=== PATIENT | male | born 1980 | race African-American/Black ===

== ENCOUNTER 2020-11-30 04:23 | Inpatient (IN) | payer OTHER ==
[~2020-11-30] VITALS: Ht 180.3 cm; Wt 126.3 kg
[2020-11-30] MEDS ORDERED: normal saline 1000ML IV soln IVB ONE (04:30)
[2020-11-30] MEDS ORDERED: iohexol 350MG/ML 100ml bottle IV ONE (04:42)
[2020-11-30 04:56] LABS: ABG BASE EXCESS -5.9 mmol/L (-2.0-2.0); ABG OXYGEN SATURATION 98.6 % (94-97); ABG PCO2 (T) 23.4 mmHg (32.0-45.0); ABG PO2 (T) 140.4 mmHg (75.0-100.0); ALLEN'S TEST Modified; FCOHb 0.2 % (0.0-3.9); FLOW 15 L/min; FO2Hb 98.4 % (94-97); PATIENT TEMPERATURE 36.6; TOTAL HEMOGLOBIN 15.1 G/dl (12.0-16.0)
[2020-11-30] MEDS ORDERED: heparin 10,000 units/1 ML INJ IV ONE ×2 (05:10)
[2020-11-30] MEDS ORDERED: normal saline 1000ml 1,000 ML IV ONE (05:15)
[2020-11-30 05:18] LABS: ALANINE AMINOTRANSFERASE 130 U/L (12-78); ALBUMIN 3.2 G/DL (3.4-5.0); ALBUMIN/GLOBULIN RATIO 0.8 (1.1-1.5); ALKALINE PHOSPHATASE 95 IU/L (46-116); ANION GAP 16 (8-16); ASPARTATE AMINO TRANSFERASE 73 U/L (10-37); BLOOD UREA NITROGEN 24 MG/DL (7-18); BUN/CREATININE RATIO 12.3 (6.6-38.0); CALCIUM 8.4 MG/DL (8.5-10.1); CHLORIDE 107 MMOL/L (99-107); CREATININE 1.95 MG/DL (0.40-0.90); GLUCOSE 175 MG/DL (70-104); POTASSIUM 3.7 MMOL/L (3.5-5.1); SODIUM 143 MMOL/L (135-145); TOTAL CARBON DIOXIDE 20.3 MMOL/L (24-32); TOTAL PROTEIN 7.1 G/DL (6.4-8.2); eGFR 28 ML/MIN
[2020-11-30] MEDS: heparin 25,000 UNIT/250ml bag 250 ML IV SCH ×2 (05:29→19:19)
[2020-11-30 05:31] LABS: EOSINOPHILS # (AUTO) 0.1 X10'3 (0-0.9); EOSINOPHILS % (AUTO) 1.1 % (0-6); LYMPHOCYTES # (AUTO) 1.7 X10'3 (1.1-4.8); MEAN CORPUSCULAR VOLUME 90.1 FL (78-98); NEUTROPHILS # (AUTO) 4.1 X10'3 (1.8-7.7); PLATELET COUNT 174 X10'3 (140-440); WHITE BLOOD COUNT 6.4 X10'3 (4.5-11.0)
[2020-11-30 05:33] LABS: BASOPHILS % (AUTO) 0.6 % (0-1); HEMATOCRIT 44.8 % (35.0-45.0); HEMOGLOBIN 14.7 g/dl (12.0-16.0); LYMPHOCYTES % (AUTO) 27.4 % (21-51); MEAN CORPUSCULAR HEMOGLOBIN 29.7 PG (27.0-31.0); MEAN CORPUSCULAR HGB CONC 32.9 g/dL (33.0-36.5); MEAN PLATELET VOLUME 8.7 FL (7.4-10.4); MONOCYTES # (AUTO) 0.4 X10'3 (0-0.9); MONOCYTES % (AUTO) 6.9 % (2-12); RED BLOOD COUNT 4.97 X10'6 (4.20-5.60); RED CELL DISTRIBUTION WIDTH 14.1 % (11.5-14.5)
[2020-11-30 05:36] LABS: D-DIMER 22.57 MG/L FEU (0-0.50)
[2020-11-30 06:29] LABS: NUCLEATED RED BLOOD CELLS 1 /100WBC (0-0); TOTAL CELLS COUNTED 100
[2020-11-30 06:30] LABS: LARGE PLATELETS MODERATE; PLATELET ESTIMATE NORMAL
--- NOTE | 2020-11-30 06:35 | NUR ---
HR 199 SVT on panel monitor, DR echevarria at bedside, verbal orders to push adenosine 6mg received, patient asymptomatic, automotive technician instructor at bedside.
--- NOTE | 2020-11-30 06:48 | NUR ---
Patient HR 122, ST at this time, Dr Copeland at bedside to assess patient, biomedical technician at bedside.
--- NOTE | 2020-11-30 07:30 | NUR ---
US TECH AT BEDSIDE.
[2020-11-30] MEDS ORDERED: adenosine 3mg/ml 2ml vial IV ONE ×2 (08:00→23:15)
[2020-11-30] MEDS ORDERED: sod chloride 0.9% 10ml flush syringe IV ONE (08:00)
[2020-11-30] MEDS ORDERED: magnesium 2GM in 50ml NS 50 ML IV PRN (09:00)
[2020-11-30] MEDS ORDERED: potassium Cl 40MEQ/1/2NS 520ml 520 ML IV PRN ×2 (09:00)
[2020-11-30] MEDS ORDERED: magnesium 4gm in 100ml NS 100 ML IV PRN (09:00)
[2020-11-30] MEDS ORDERED: morphine 2 MG/ML inj. syringe IV PRN (09:00)
[2020-11-30] MEDS ORDERED: magnesium Cl slow-release 64mg tablet PO PRN (09:00)
[2020-11-30] MEDS ORDERED: potassium Cl 20 mEq SR tablet PO PRN ×2 (09:00)
[2020-11-30] MEDS ORDERED: ondansetron/PF 4mg/2ml inj IV PRN (09:00)
[2020-11-30] MEDS ORDERED: acetaminophen 325mg tablet PO PRN (09:00)
[2020-11-30] MEDS: normal saline 1000ml 1,000 ML IV SCH ×2 (09:28→19:19)
[2020-11-30] MEDS ORDERED: NO HOME MEDS (12:33)
[2020-11-30] MEDS: K and/or MAG REPLACEMENT MC SCH (20:00)
[2020-11-30 20:20] VITALS: BP 141/102
[2020-11-30 22:00] VITALS: BP 133/86
[2020-11-30] MEDS ORDERED: nitroGLYCERIN 0.4mg SUBLingual tab SL PRN (22:05)
--- NOTE | 2020-11-30 23:10 | NUR ---
PAGER ID: [phone] MESSAGE: [phone] Harsh Causey: SVT 190s, vagal not successful. Need meds. Adenosine, Cardizem, amio?? Sonia MONTE [id number]
--- NOTE | 2020-11-30 23:31 | NUR ---
Page Sent promotional table spacer PAGER ID: [phone] MESSAGE: RE: Harsh Dubose RM [id number]: Adenosine pushed. 12-lead EKG shows sinus tach 115. ICU recommends amio drip. Please advise. Olivia [phone]
[2020-12-01] VITALS (10 sets, daily range): BP systolic 127–155; BP diastolic 75–105
[2020-12-01] MEDS: amiodarone/D5 360MG/200ML BAG 200 ML IV SCH ×4 (01:01→23:51)
[2020-12-01] MEDS: heparin 10,000 units/1 ML INJ IV PRN ×2 (01:39→13:22)
[2020-12-01] MEDS: normal saline 1000ml 1,000 ML IV SCH ×2 (05:01→15:00)
[2020-12-01 07:04] LABS: BASOPHILS % (AUTO) 0.9 % (0-1); EOSINOPHILS # (AUTO) 0.1 X10'3 (0-0.9); EOSINOPHILS % (AUTO) 1.7 % (0-6); HEMATOCRIT 42.1 % (42.0-52.0); HEMOGLOBIN 13.9 g/dl (14.0-17.9); LYMPHOCYTES # (AUTO) 1.3 X10'3 (1.1-4.8); LYMPHOCYTES % (AUTO) 26.8 % (21-51); MEAN CORPUSCULAR HEMOGLOBIN 29.6 PG (27.0-31.0); MEAN CORPUSCULAR VOLUME 89.5 FL (78-98); MEAN PLATELET VOLUME 9.1 FL (7.4-10.4); MONOCYTES # (AUTO) 0.4 X10'3 (0-0.9); MONOCYTES % (AUTO) 8.9 % (2-12); NEUTROPHILS % (AUTO) 61.7 % (42-75); PLATELET COUNT 171 X10'3 (140-440); RED CELL DISTRIBUTION WIDTH 14.2 % (11.5-14.5); WHITE BLOOD COUNT 4.8 X10'3 (4.5-11.0)
[2020-12-01 07:07] LABS: ANION GAP -1 (8-16); BLOOD UREA NITROGEN 22 MG/DL (7-18); BUN/CREATININE RATIO 17.6 (5.4-32.0); CALCIUM 8.7 MG/DL (8.5-10.1); CHLORIDE 103 MMOL/L (99-107); CREATININE 1.25 MG/DL (0.60-1.10); GLUCOSE 109 MG/DL (70-104); MAGNESIUM 2.2 MG/DL (1.5-2.4); POTASSIUM 4.1 MMOL/L (3.5-5.1); SODIUM 125 MMOL/L (135-145); TOTAL CARBON DIOXIDE 22.5 MMOL/L (24-32); eGFR 77 ML/MIN
[2020-12-01] MEDS: K and/or MAG REPLACEMENT MC SCH ×2 (08:00→19:48)
[2020-12-01] MEDS: heparin 25,000 UNIT/250ml bag 250 ML IV SCH ×3 (09:53→22:55)
[2020-12-01 09:56] LABS: ALBUMIN 2.9 G/DL (3.4-5.0); ANION GAP 11 (8-16); BLOOD UREA NITROGEN 22 MG/DL (7-18); CALCIUM 8.6 MG/DL (8.5-10.1); CHLORIDE 107 MMOL/L (99-107); CREATININE 1.22 MG/DL (0.60-1.10); GLUCOSE 124 MG/DL (70-104); POTASSIUM 4.3 MMOL/L (3.5-5.1); SODIUM 142 MMOL/L (135-145); eGFR 79 ML/MIN
[2020-12-01] MEDS ORDERED: ondansetron 4mg rapidly disintigrating tab PO PRN (14:40)
--- NOTE | 2020-12-01 20:49 | NUR ---
Report received from MELL Pretty. PTT result 130 heparin drip at 2300U/Hr stopped at 2045 to restart at 2245 at 2000U/Hr and next PTT on 12/02/20 at 0100
[2020-12-02 02:00] VITALS: BP 139/97
[2020-12-02 02:14] LABS: EOSINOPHILS # (AUTO) 0.1 X10'3 (0-0.9); EOSINOPHILS % (AUTO) 2.8 % (0-6); HEMATOCRIT 39.6 % (42.0-52.0); HEMOGLOBIN 13.4 g/dl (14.0-17.9); LYMPHOCYTES # (AUTO) 1.3 X10'3 (1.1-4.8); LYMPHOCYTES % (AUTO) 31.8 % (21-51); MEAN CORPUSCULAR HEMOGLOBIN 29.8 PG (27.0-31.0); MEAN CORPUSCULAR HGB CONC 33.8 g/dL (33.0-36.5); MEAN CORPUSCULAR VOLUME 88.3 FL (78-98); MEAN PLATELET VOLUME 8.6 FL (7.4-10.4); MONOCYTES # (AUTO) 0.4 X10'3 (0-0.9); MONOCYTES % (AUTO) 8.8 % (2-12); NEUTROPHILS # (AUTO) 2.2 X10'3 (1.8-7.7); NEUTROPHILS % (AUTO) 55.6 % (42-75); PLATELET COUNT 175 X10'3 (140-440); RED BLOOD COUNT 4.49 X10'6 (4.70-6.10); RED CELL DISTRIBUTION WIDTH 13.9 % (11.5-14.5)
[2020-12-02 02:25] LABS: ALBUMIN 2.9 G/DL (3.4-5.0); ANION GAP 6 (8-16); BLOOD UREA NITROGEN 20 MG/DL (7-18); BUN/CREATININE RATIO 14.5 (5.4-32.0); CALCIUM 8.6 MG/DL (8.5-10.1); CHLORIDE 108 MMOL/L (99-107); CREATININE 1.38 MG/DL (0.60-1.10); GLUCOSE 92 MG/DL (70-104); MAGNESIUM 1.9 MG/DL (1.5-2.4); POTASSIUM 4.4 MMOL/L (3.5-5.1); SODIUM 138 MMOL/L (135-145); TOTAL CARBON DIOXIDE 23.9 MMOL/L (24-32); eGFR 69 ML/MIN
[2020-12-02] MEDS: heparin 10,000 units/1 ML INJ IV PRN (05:25)
[2020-12-02] MEDS: normal saline 1000ml 1,000 ML IV SCH ×3 (05:35→21:49)
[2020-12-02] MEDS: amiodarone/D5 360MG/200ML BAG 200 ML IV SCH ×3 (05:55→23:28)
[2020-12-02 06:00] VITALS: BP 147/95
--- NOTE | 2020-12-02 06:00 | NUR ---
Patient in room PCU 3020. I have received report from Yeyo MONTE and had the opportunity to ask questions and assume patient care.
[2020-12-02 06:32] LABS: LARGE PLATELETS FEW; PLATELET ESTIMATE NORMAL
--- NOTE | 2020-12-02 06:35 | NUR ---
Lab result received PTT 36. Heparin drip 25,000units per 250 ml bag adjusted at 0525 per to 2200units/Hr and 4,000units bolus administered via EJ line, PTT to drawn at 1125.
[2020-12-02] MEDS: K and/or MAG REPLACEMENT MC SCH ×2 (07:14→20:00)
[2020-12-02 11:00] VITALS: BP 144/98
--- NOTE | 2020-12-02 13:36 | NUR ---
PAGER ID: [phone] MESSAGE: Harsh Sutton room 3020's BP is 157/101 with HR 95 amio is running at 10ml/hr. Would you like to leave it the same or make an adjustment. Please advise Megan ext [phone]
[2020-12-02 15:00] VITALS: BP 168/99
[2020-12-02] MEDS: heparin 25,000 UNIT/250ml bag 250 ML IV SCH (16:37)
[2020-12-02 18:00] VITALS: BP 149/96
--- NOTE | 2020-12-02 18:53 | NUR ---
Problems reprioritized. Patient report given, questions answered & plan of care reviewed with LAURA RN.
[2020-12-02] MEDS ORDERED: apixaban 5mg tablet PO SCH (20:00)
[2020-12-02] MEDS: metoprolol tartrate 12.5mg (1/2 tablet) PO SCH (21:08)
[2020-12-02] MEDS: apixaban 5mg tablet PO SCH (21:09)
[2020-12-02 22:00] VITALS: BP 152/90
[2020-12-03 02:00] VITALS: BP 135/86
[2020-12-03 04:54] LABS: EOSINOPHILS # (AUTO) 0.1 X10'3 (0-0.9); MEAN CORPUSCULAR HEMOGLOBIN 29.7 PG (27.0-31.0); MONOCYTES # (AUTO) 0.4 X10'3 (0-0.9); NEUTROPHILS # (AUTO) 2.3 X10'3 (1.8-7.7); WHITE BLOOD COUNT 3.8 X10'3 (4.5-11.0)
[2020-12-03 04:56] LABS: BASOPHILS % (AUTO) 0.9 % (0-1); HEMATOCRIT 40.2 % (42.0-52.0); HEMOGLOBIN 13.3 g/dl (14.0-17.9); MEAN CORPUSCULAR HGB CONC 33.2 g/dL (33.0-36.5); MEAN CORPUSCULAR VOLUME 89.5 FL (78-98); MEAN PLATELET VOLUME 8.9 FL (7.4-10.4); MONOCYTES % (AUTO) 9.3 % (2-12); NEUTROPHILS % (AUTO) 60.8 % (42-75); PLATELET COUNT 175 X10'3 (140-440); RED BLOOD COUNT 4.49 X10'6 (4.70-6.10); RED CELL DISTRIBUTION WIDTH 13.9 % (11.5-14.5)
[2020-12-03 05:04] LABS: ALBUMIN 2.8 G/DL (3.4-5.0); ANION GAP 11 (8-16); BLOOD UREA NITROGEN 17 MG/DL (7-18); BUN/CREATININE RATIO 12.3 (5.4-32.0); CALCIUM 8.5 MG/DL (8.5-10.1); CHLORIDE 108 MMOL/L (99-107); CREATININE 1.38 MG/DL (0.60-1.10); GLUCOSE 90 MG/DL (70-104); MAGNESIUM 1.9 MG/DL (1.5-2.4); POTASSIUM 4.1 MMOL/L (3.5-5.1); SODIUM 143 MMOL/L (135-145); TOTAL CARBON DIOXIDE 24.3 MMOL/L (24-32); eGFR 69 ML/MIN
[2020-12-03 06:00] VITALS: BP 134/88
--- NOTE | 2020-12-03 06:16 | NUR ---
Patient in room PCU 3020. I have received report from and had the opportunity to ask questions and assume patient care. Addendum: 12/03/20 at 0616 by Megan Mccollum RN LAURA MONTE
[2020-12-03] MEDS: K and/or MAG REPLACEMENT MC SCH ×2 (06:44→19:43)
[2020-12-03] MEDS: normal saline 1000ml 1,000 ML IV SCH ×2 (07:00→17:20)
[2020-12-03] MEDS: apixaban 5mg tablet PO SCH ×2 (07:00→19:51)
[2020-12-03] MEDS: metoprolol tartrate 12.5mg (1/2 tablet) PO SCH (07:02)
[2020-12-03] MEDS: amiodarone/D5 360MG/200ML BAG 200 ML IV SCH (07:07)
--- NOTE | 2020-12-03 09:42 | NUR ---
I agree with Preceptee, Lotus MONTE's physical assessment.
[2020-12-03] MEDS ORDERED: amiodarone/D5 360MG/200ML BAG 200 ML IV SCH (09:55)
[2020-12-03 11:00] VITALS: BP 150/83
[2020-12-03 15:00] VITALS: BP 141/86
[2020-12-03 18:00] VITALS: BP 138/87
--- NOTE | 2020-12-03 18:16 | NUR ---
Problems reprioritized. Patient report given, questions answered & plan of care reviewed with MELL Oquendo .
[2020-12-03] MEDS: metoprolol tartrate 25mg tablet PO SCH (19:51)
[2020-12-03 22:00] VITALS: BP 139/92
[2020-12-04 02:00] VITALS: BP 137/99
[2020-12-04 06:00] VITALS: BP 137/99
[2020-12-04 06:51] LABS: ALBUMIN 2.7 G/DL (3.4-5.0); ANION GAP 10 (8-16); BLOOD UREA NITROGEN 14 MG/DL (7-18); BUN/CREATININE RATIO 10.9 (5.4-32.0); CALCIUM 8.6 MG/DL (8.5-10.1); CHLORIDE 108 MMOL/L (99-107); CREATININE 1.29 MG/DL (0.60-1.10); GLUCOSE 89 MG/DL (70-104); MAGNESIUM 2.1 MG/DL (1.5-2.4); POTASSIUM 4.1 MMOL/L (3.5-5.1); SODIUM 140 MMOL/L (135-145); eGFR 74 ML/MIN
[2020-12-04 07:01] LABS: EOSINOPHILS # (AUTO) 0.1 X10'3 (0-0.9); EOSINOPHILS % (AUTO) 3.1 % (0-6); HEMOGLOBIN 13.5 g/dl (14.0-17.9); LYMPHOCYTES # (AUTO) 0.9 X10'3 (1.1-4.8); MEAN PLATELET VOLUME 9.1 FL (7.4-10.4); MONOCYTES # (AUTO) 0.4 X10'3 (0-0.9); NEUTROPHILS # (AUTO) 2.4 X10'3 (1.8-7.7); RED CELL DISTRIBUTION WIDTH 13.9 % (11.5-14.5); WHITE BLOOD COUNT 3.8 X10'3 (4.5-11.0)
[2020-12-04 07:04] LABS: BASOPHILS % (AUTO) 0.6 % (0-1); HEMATOCRIT 41.1 % (42.0-52.0); LYMPHOCYTES % (AUTO) 22.7 % (21-51); MEAN CORPUSCULAR HEMOGLOBIN 29.3 PG (27.0-31.0); MEAN CORPUSCULAR HGB CONC 32.8 g/dL (33.0-36.5); MEAN CORPUSCULAR VOLUME 89.3 FL (78-98); MONOCYTES % (AUTO) 10.6 % (2-12); PLATELET COUNT 179 X10'3 (140-440)
[2020-12-04 07:42] VITALS: BP_SYST 148
[2020-12-04] MEDS: apixaban 5mg tablet PO SCH (07:42)
[2020-12-04] MEDS: metoprolol tartrate 25mg tablet PO SCH (07:42)
[2020-12-04] MEDS: K and/or MAG REPLACEMENT MC SCH (08:00)
[2020-12-04] MEDS ORDERED: mag hydrox/Alum hydrox/simeth 30ml oral suspension PO PRN (08:45)
[2020-12-04] MEDS ORDERED: APIX5TAB3 PO (09:35)
[2020-12-04] MEDS ORDERED: LOP25T PO (09:35)
--- NOTE | 2020-12-04 09:56 | NUR ---
PAGER ID: [phone] MESSAGE: [phone] Harsh Dubose- Requests you for further questions before discharge. Renu 2020
[2020-12-04 10:12] LABS: BURR CELLS 1+; LARGE PLATELETS MODERATE; PLATELET ESTIMATE NORMAL
[2020-12-04 10:13] LABS: SCHISTOCYTES FEW
--- NOTE | 2020-12-04 11:30 | NUR ---
Discharge instructions given to patient. PIV removed with catheter intact. All personal belongings given to guard. Patient ambulated safely off unit with guard.
[2020-12-09] MEDS ORDERED: apixaban 5mg tablet PO SCH (20:00)
== END 2020-12-04 11:25 | DRG 175 ==
LOC: ER 04:24 → EDSEX 04:24 → EEVIPCON 04:24 → ED HOLD 09:02 → EDBEDREQ 18:12 → PCU 3S 20:23
PROVIDERS: ADMIT Internal Medicine; ATTEND Internal Medicine
PROC: B32T1ZZ Computerized Tomography (CT Scan) of Left Pulmonary Artery using Low Osmolar Contrast (ICD-10-PCS; principal; 2020-11-30)
PROC: B3201ZZ Computerized Tomography (CT Scan) of Thoracic Aorta using Low Osmolar Contrast (ICD-10-PCS; 2020-11-30)
PROC: B32S1ZZ Computerized Tomography (CT Scan) of Right Pulmonary Artery using Low Osmolar Contrast (ICD-10-PCS; 2020-11-30)
DX: I26.99 Other pulmonary embolism without acute cor pulmonale (principal); I21.A1 Myocardial infarction type 2; J96.01 Acute respiratory failure with hypoxia; I82.413 Acute embolism and thrombosis of femoral vein, bilateral; I47.1 Supraventricular tachycardia; E87.1 Hypo-osmolality and hyponatremia; I82.443 Acute embolism and thrombosis of tibial vein, bilateral; N18.30 Chronic kidney disease, stage 3 unspecified; I12.9 Hypertensive chronic kidney disease with stage 1 through stage 4 chronic kidney disease, or unspecified chronic kidney disease; R55 Syncope and collapse; Z20.822 Contact with and (suspected) exposure to COVID-19; Z79.01 Long term (current) use of anticoagulants
CPT/HCPCS: 36415; 36600; 70450; 71045; 71275; 72125; 80048; 80053; 82803; 82948; 83735; 83880; 84484; 85007; 85008; 85018; 85025; 85379; 85610; 85730; 87081; 87635; 93005; 93306; 93970; 96361; 96374; 99291; C9803; G0378; J0153; J1644; J7030; Q9967